=== PATIENT | male | born 1975 | race Caucasian/White ===

== ENCOUNTER 2017-04-14 07:07 | Emergency (ER) | payer MEDICAID, OTHER ==
[~2017-04-14] VITALS: Ht 170.2 cm; Wt 74.0 kg
[~2017-04-14 07:07] MED LIST: ALBU0.08 NEB; ALBUAER3 INH; DIAZ10TA PO; NEBULIZER1 MI1; VITA400T2 PO; WHEEMIS3; [UNRECOGNIZED DRUG - OTHER]
[2017-04-14 07:09] VITALS: BP 132/77; PULSE 90; RESP 20; TEMP 98.6; O2SAT 96
[2017-04-14 07:24] VITALS: BP 136/78; PULSE 86; RESP 19; O2SAT 97
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
[2017-04-14 07:44] VITALS: BP 136/73; TEMP 98.6
[2017-04-30] MEDS ORDERED: DIAZ10TA PO (13:06)
== END 2017-04-14 07:44 | disposition home or self-care (01) ==
LOC: NEPC 07:07
DX: K64.9 Unspecified hemorrhoids (principal); R19.7 Diarrhea, unspecified; G82.20 Paraplegia, unspecified; J45.909 Unspecified asthma, uncomplicated; Z79.51 Long term (current) use of inhaled steroids; Z79.899 Other long term (current) drug therapy
CPT/HCPCS: 99284